=== PATIENT | male | born 1980 | race Caucasian/White ===

== ENCOUNTER 2016-09-01 18:34 | Emergency (ER) | payer MEDICAID ==
[2016-09-01 18:59] VITALS: BP 155/95
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
[2016-09-01] MEDS ORDERED: Clindamycin HCl 150 MG Cap PO ONE (19:28)
== END 2016-09-01 19:31 | disposition home or self-care (01) ==
LOC: FB.ED 18:34
DX: K08.89 Other specified disorders of teeth and supporting structures (principal); Z88.1 Allergy status to other antibiotic agents; Z88.8 Allergy status to other drugs, medicaments and biological substances
CPT/HCPCS: 99282; A9270

== ENCOUNTER 2024-03-14 21:25 | Emergency (ER) | payer MEDICAID ==
[2024-03-14 21:43] VITALS: PULSE 118
[2024-03-14] MEDS: amLODIPine 5 MG Tab PO ONE (21:46)
[2024-03-14 22:00] VITALS: BP 154/100
== END 2024-03-14 21:57 ==
LOC: FB.ED 21:25
DX: Z02.89 Encounter for other administrative examinations (principal); I10 Essential (primary) hypertension; Z88.0 Allergy status to penicillin
CPT/HCPCS: 99284; A9270; 99283